=== PATIENT | female | born 1945 ===

== ENCOUNTER 2017-02-19 08:43 | Emergency (ER) | payer MEDICARE ==
--- NOTE | 2017-02-19 08:56 | ED ---
Lower Extremity - HPI Summary HPI Summary: Patient was working on a ladder yesterday when she fell backward landing on her left hip. When she slipped, the right knee was caught in between the rungs and she thinks she twisted it. She was able to get up with the help of some friends and limped around for the evening. This AM the knee was swollen and she had pain with weight bearing. She denies previous injury to this knee, and no N/T. - History of Current Complaint Chief Complaint: EDExtremityLower Stated Complaint: FALL 6 TO 8 FEET , RIGHT KNEE PAIN Time Seen by Provider: 02/19/17 08:49 Hx Obtained From: Patient Mechanism Of Injury: Fall From Height Of: - 6 ft, Twisted Onset of Pain: Hours Onset/Duration: Worse Since - yesterday Severity Initially: Mild Severity Currently: Moderate Pain Intensity: 3 Timing: Constant Location: Is Discrete @ - right knee Character Of Pain: Dull, Aching, Stiffness Associated Signs And Symptoms: Positive: Swelling, Knee Pain Aggravating Factor(s): Standing, Movement Alleviating Factor(s): Nothing Able to Bear Weight: Yes - with pain - Allergies/Home Medications Allergies/Adverse Reactions: Allergies Allergy/AdvReac Type Severity Reaction Status Date / Time No Known Allergies Allergy Verified 04/28/16 07:46 PMH/Surg Hx/FS Hx/Imm Hx Sensory History: Reports: Hx Cataracts - BILATERAL, Hx Contacts or Glasses - glasses Denies: Hx Hearing Aid Opthamlomology History: Reports: Hx Cataracts - BILATERAL, Hx Contacts or Glasses - glasses - Cancer History Hx Chemotherapy: No Hx Radiation Therapy: No - Surgical History Surgery Procedure, Year, and Place: TUBAL LIGATION-25 YEARS AGO. POLYPS REMOVED FROM UTERUS- 3 YEARS AGO Hx Anesthesia Reactions: Yes - NAUSEA Infectious Disease History: Denies: Traveled Outside the [place] in Last 30 Days - Family History Known Family History: Positive: None - Social History Occupation: Retired Lives: Alone Alcohol Use: Occasionally Substance Use Type: Reports: None Smoking Status (MU): Never Smoked Tobacco Review of Systems Positive: Myalgia, Decreased ROM, Edema All Other Systems Reviewed And Are Negative: Yes Physical Exam Triage Information Reviewed: Yes Vital Signs On Initial Exam: Initial Vitals Temp Pulse Resp BP Pulse Ox 98.7 F 77 18 129/67 100 02/19/17 08:45 02/19/17 08:45 02/19/17 08:45 02/19/17 08:45 02/19/17 08:45 Vital Signs Reviewed: Yes Appearance: Positive: Well-Appearing, Well-Nourished, Pain Distress Skin: Positive: Warm, Skin Color Reflects Adequate Perfusion, Dry, Tender - multiple superficial abrasions to the anterior right knee, Soft Head/Face: Positive: Normal Head/Face Inspection Eyes: Positive: EOMI, GEORGE, Conjunctiva Clear ENT: Positive: Hearing grossly normal Respiratory/Lung Sounds: Positive: Breath Sounds Present Cardiovascular: Positive: RRR Musculoskeletal: Positive: Limited @ - flexion to 30; pain with extension or further flexion, Pain @ - non-tender to palpation globally; pain with movement, Edema Right - knee Neurological: Positive: Sensory/Motor Intact, Alert, Oriented to Person Place, Time, NV Bundle Intact Distally, Unable to Assess Gait Psychiatric: Positive: Affect/Mood Appropriate AVPU Assessment: Alert Procedures - Splinting Location: right leg Pre-Made Type: velcro Splint: extension knee immobilizer Pre-Proc Neuro Vasc Exam: normal Post-Proc Neuro Vasc Exam: normal Diagnostics - Vital Signs Vital Signs Temp Pulse Resp BP Pulse Ox 02/19/17 08:45 98.7 F 77 18 129/67 100 - Laboratory Lab Statement: Any lab studies that have been ordered have been reviewed, and results considered in the medical decision making process. - Radiology No standard instances Xray Interpretation: Positive (See Comments) Radiology Interpretation Completed By: Radiologist - possible patella fracture - CT No standard instances CT Interpretation: Positive (See Comments) CT Interpretation Completed By: Radiologist - non-displaced right patella fracture Lower Extremity Course/Dx - Diagnoses Differential Diagnosis/HQI/PQRI: Positive: Arthritis, Cellulitis, Contusion, Fracture (Closed), Infection, Sprain, Strain Provider Diagnoses: Abrasion of right knee, Right patella fracture Discharge - Discharge Plan Condition: Stable Disposition: HOME Patient Education Materials: Patellar Fracture (ED) Referrals: Zeke Alegre MD [Primary Care Provider] - Reji Hernandez MD [Medical Doctor] - Additional Instructions: Lower Extremity - HPI Summary HPI Summary: Patient was working on a ladder yesterday when she fell backward landing on her left hip. When she slipped, the right knee was caught in between the rungs and she thinks she twisted it. She was able to get up with the help of some friends and limped around for the evening. This AM the knee was swollen and she had pain with weight bearing. She denies previous injury to this knee, and no N/T. - History of Current Complaint Chief Complaint: MATTHEWExtrepaolayLuri Stated Complaint: FALL 6 TO 8 FEET , RIGHT KNEE PAIN Time Seen by Provider: 02/19/17 08:49 Hx Obtained From: Patient Mechanism Of Injury: Fall From Height Of: - 6 ft, Twisted Onset of Pain: Hours Onset/Duration: Worse Since - yesterday Severity Initially: Mild Severity Currently: Moderate Pain Intensity: 3 Timing: Constant Location: Is Discrete @ - right knee Character Of Pain: Dull, Aching, Stiffness Associated Signs And Symptoms: Positive: Swelling, Knee Pain Aggravating Factor(s): Standing, Movement Alleviating Factor(s): Nothing Able to Bear Weight: Yes - with pain - Allergies/Home Medications Allergies/Adverse Reactions: Allergies Allergy/AdvReac Type Severity Reaction Status Date / Time No Known Allergies Allergy Verified 04/28/16 07:46 PMH/Surg Hx/FS Hx/Imm Hx Sensory History: Reports: Hx Cataracts - BILATERAL, Hx Contacts or Glasses - glasses Denies: Hx Hearing Aid Opthamlomology History: Reports: Hx Cataracts - BILATERAL, Hx Contacts or Glasses - glasses - Cancer History Hx Chemotherapy: No Hx Radiation Therapy: No - Surgical History Surgery Procedure, Year, and Place: TUBAL LIGATION-25 YEARS AGO. POLYPS REMOVED FROM UTERUS- 3 YEARS AGO Hx Anesthesia Reactions: Yes - NAUSEA Infectious Disease History: Denies: Traveled Outside the [place] in Last 30 Days - Family History Known Family History: Positive: None - Social History Occupation: Retired Lives: Alone Alcohol Use: Occasionally Substance Use Type: Reports: None Smoking Status (MU): Never Smoked Tobacco Review of Systems Positive: Myalgia, Decreased ROM, Edema All Other Systems Reviewed And Are Negative: Yes Physical Exam Triage Information Reviewed: Yes Vital Signs On Initial Exam: Initial Vitals Temp Pulse Resp BP Pulse Ox 98.7 F 77 18 129/67 100 02/19/17 08:45 02/19/17 08:45 02/19/17 08:45 02/19/17 08:45 02/19/17 08:45 Vital Signs Reviewed: Yes Appearance: Positive: Well-Appearing, Well-Nourished, Pain Distress Skin: Positive: Warm, Skin Color Reflects Adequate Perfusion, Dry, Tender - multiple superficial abrasions to the anterior right knee, Soft Head/Face: Positive: Normal Head/Face Inspection Eyes: Positive: EOMI, GEORGE, Conjunctiva Clear ENT: Positive: Hearing grossly normal Respiratory/Lung Sounds: Positive: Breath Sounds Present Cardiovascular: Positive: RRR Musculoskeletal: Positive: Limited @ - flexion to 30; pain with extension or further flexion, Pain @ - non-tender to palpation globally; pain with movement, Edema Right - knee Neurological: Positive: Sensory/Motor Intact, Alert, Oriented to Person Place, Time, NV Bundle Intact Distally, Unable to Assess Gait Psychiatric: Positive: Affect/Mood Appropriate AVPU Assessment: Alert Procedures - Splinting Location: right leg Pre-Made Type: velcro Splint: extension knee immobilizer Pre-Proc Neuro Vasc Exam: normal Post-Proc Neuro Vasc Exam: normal Diagnostics - Vital Signs Vital Signs Temp Pulse Resp BP Pulse Ox 02/19/17 08:45 98.7 F 77 18 129/67 100 - Laboratory Lab Statement: Any lab studies that have been ordered have been reviewed, and results considered in the medical decision making process. - Radiology No standard instances Xray Interpretation: Positive (See Comments) Radiology Interpretation Completed By: Radiologist - possible patella fracture - CT No standard instances CT Interpretation: Positive (See Comments) CT Interpretation Completed By: Radiologist - non-displaced right patella fracture Lower Extremity Course/Dx - Diagnoses Differential Diagnosis/HQI/PQRI: Positive: Arthritis, Cellulitis, Contusion, Fracture (Closed), Infection, Sprain, Strain Provider Diagnoses: Abrasion of right knee, Right patella fracture Discharge - Discharge Plan Condition: Stable Disposition: HOME Patient Education Materials: Patellar Fracture (ED) Referrals: Zeke Alegre MD [Primary Care Provider] - Reji Hernandez MD [Medical Doctor] - Please wear your splint at all times to protect your kneecap. You can put weight on your leg as tolerated, but use the walker to support yourself. Ice, elevate, use the Manuel bandage and take 600mg of ibuprofen three times daily with meals for pain. Call Dr. Hernandez's office with orthopedics Tuesday for an appointment at his discretion. Return to the emergency department if symptoms worsen.
--- NOTE | 2017-02-19 09:21 | RAD ---
INDICATION: Right knee injury. TECHNIQUE: 4 views of the right knee were obtained. FINDINGS: There is soft tissue swelling anterior to the patella. There is a moderate joint effusion present. There is increased lucency present in the inferior third of the patella suspicious for a nondisplaced patellar fracture. No other fractures are seen. IMPRESSION: PROBABLE NONDISPLACED INTRA-ARTICULAR FRACTURE OF THE PATELLA. THIS CAN BE FURTHER DEFINED WITH A CT OF THE KNEE.
--- NOTE | 2017-02-19 10:18 | RAD ---
INDICATION: Trauma right knee pain possible patellar fracture. COMPARISON: Comparison is made with a prior x-ray study of the right knee of the same day. TECHNIQUE: Contiguous axial sections were obtained of the right knee. Images were reconstructed in the sagittal and coronal planes. FINDINGS: There is a moderate lipohemarthrosis. There is a transverse mildly oblique comminuted intra-articular fracture of the patella. The fracture involves the lower portion of the patella and the fracture fragments are slightly distracted. No additional fractures are seen. IMPRESSION: 1. TRANSVERSE, COMMINUTED, SLIGHTLY DISPLACED, INTRA-ARTICULAR FRACTURE OF THE PATELLA. 2. LIPOHEMARTHROSIS.
[2017-02-19 11:37] VITALS: BP 127/64
== END 2017-02-19 11:34 | disposition home or self-care (01) ==
LOC: ED 08:43
DX: S82.001A Unspecified fracture of right patella, initial encounter for closed fracture (principal); S80.211A Abrasion, right knee, initial encounter; W11.XXXA Fall on and from ladder, initial encounter; Y92.9 Unspecified place or not applicable
CPT/HCPCS: 99282